=== PATIENT | male | born 1990 | race Caucasian/White ===

== ENCOUNTER 2016-11-22 13:28 | Emergency (ER) | payer OTHER ==
[~2016-11-22] VITALS: Ht 190.5 cm; Wt 99.8 kg
--- NOTE | ~2016-11-22 | CT4 ---
[facility] A Service of [facility] RADIOLOGY TEXT RESULTS PATIENT: ABILIO ZAMAN LOCATION: [facility] : [birth year] UNIT #: [id number] AGE: [address]: Yuan Banks MD SEX: M ORDER DR: [id number] [facility] [address] [place], [place] [address] [id number] MR#: [id number] Acc #: [id number] NAME: ABILIO ZAMAN : 1990 SEX: M STUDY DATE/TIME: 11/22/2016 15:28 UNIT: [facility] ROOM: STUDY DESCRIPTION: CT Abd and Pelv Wo Cont Attending Physician: Yuan Banks M.D. Ordering Physician: Yuan Banks M.D. Primary Care Physician: Primary Care Physician No MEDICAL IMAGING REPORT This report is preliminary unless electronic signature is present EXAM CT of the abdomen and pelvis without contrast, 11/22/16 INDICATION Left flank pain starting today, no comparison. FINDINGS Axial 3 mm images were obtained through the abdomen and pelvis without IV or oral contrast. Sagittal and coronal reconstructions were generated. This CT exam was performed with one or more of the following radiation dose reduction techniques: automatic exposure control, adjustment of mA and/or kV according to patient size, and iterative reconstruction. FINDINGS Lung bases are clear. The very top of the liver is not included. The visualized liver is normal. The gallbladder, spleen, pancreas, adrenal glands and right kidney are normal. The left kidney has mild hydronephrosis, and the left ureter is slightly dilated, and this is caused by a distal ureteral stone that is in the bladder wall. This measures about 2 mm in diameter. The aorta is normal in size, and there is no adenopathy. The bowel is normal. The bladder and prostate gland are normal. The patient has bilateral pars defects at L5. There is no subluxation. The bones are otherwise normal. IMPRESSION A 2 mm left ureterovesical junction stone. This is causing mild hydronephrosis. Otherwise, the study is normal. [facility] A Service [facility] RADIOLOGY TEXT RESULTS PATIENT: ABILIO ZAMAN LOCATION: [facility] : [birth year] UNIT #: [id number] AGE: [address]: Yuan Banks MD SEX: M ORDER DR: Dictated by... Omid Layton M.D. THIS IS AN ELECTRONICALLY VERIFIED REPORT Omid Layton M.D. at 11/23/2016 1:37 PM SARA/loree TD: 11/23/2016 05:34 JOB #: [id number] MEDICAL IMAGING REPORT Page 1 of 1 COPY
[~2016-11-22 13:28] MED LIST: IBUPROFEN PO
[2016-11-22 14:16] LABS: BASOPHIL# 0.1 X10e3 (0-0.3); BASOPHIL% 0.7 % (0-2.5); EOSINOPHIL# 0.2 X10e3 (0-0.7); HEMATOCRIT 48.9 % (38.0-50.0); HEMOGLOBIN 17.1 gm/dL (13.0-16.0); LYMPHOCYTE# 3.2 X10e3 (1.0-3.5); LYMPHOCYTE% 38.8 % (17.0-45.0); MEAN CELL VOLUME 82.5 FL (83-96); MEAN CORPUSCULAR HEMOGLOBIN 28.9 PG (28-34); MEAN PLATELET VOLUME 7.9 FL (6.5-11.5); MONOCYTE# 0.6 X10e3 (0-1.0); MONOCYTE% 7.7 % (3.0-12.0); NEUTROPHIL# 4.2 X10e3 (1.5-7.1); NEUTROPHIL% 50.8 % (40-75); PLATELET COUNT 263 X10e3 (140-420); RED BLOOD COUNT 5.92 X10e (3.90-5.60); RED CELL DISTRIBUTION WIDTH 13.8 % (11.0-15.5); WHITE BLOOD COUNT 8.3 X10e3 (4.0-10.5)
[2016-11-22 14:21] LABS: DIFF IND NO
[2016-11-22 14:43] LABS: CALCIUM SERUM 9.2 mg/dL (8.4-10.2); CREATININE SERUM 1.1 mg/dL (0.6-1.4); GLOM FILT RATE Estimated 92.8 mL/min (>60); POTASSIUM 3.2 mmol/L (3.5-5.1)
[2016-11-22 16:35] LABS: URINE SOURCE CLEAN CATCH
[2016-11-22 16:42] LABS: URINE APPEARANCE CLOUDY; URINE BILIRUBIN NEG (NEG); URINE BLOOD 3+ (NEG); URINE COLOR YELLOW; URINE GLUCOSE NEG (NEG); URINE KETONE TRACE (NEG); URINE LEUKOCYTE ESTERASE TRACE (NEG); URINE NITRATE NEG (NEG); URINE PH 6.5 (5-8); URINE PROTEIN 2+ (NEG); URINE SPECIFIC GRAVITY 1.026 (1.003-1.035)
[2016-11-22 16:45] LABS: CULTURE INDICATED? YES; URBCS1 AUWI 200-300 /[HPF] (0-2); URINE SQUAMOUS EPITHELIAL CELL FEW /[HPF]
[2016-11-22 17:06] LABS: URINE BACTERIA AUWI 1+ (NEGATIVE); URINE SPERM PRESENT
== END 2016-11-22 17:51 | disposition home or self-care (01) ==
LOC: CED 13:28
PROVIDERS: Emergency Medicine
DX: N13.2 Hydronephrosis with renal and ureteral calculous obstruction (principal); F90.9 Attention-deficit hyperactivity disorder, unspecified type; J45.909 Unspecified asthma, uncomplicated; Z88.8 Allergy status to other drugs, medicaments and biological substances
CPT/HCPCS: 36415; 74176; 80048; 81003; 85025; 87086; 96374; 96375; 99284; J1885; J2405